=== PATIENT | female | born 2000 ===

== ENCOUNTER 2018-04-07 11:53 | Emergency (ER) | payer OTHER ==
--- OUTSIDE RECORDS SUMMARY | 2018-04-07 11:57 | XMS REPORT | Continuity of Care Document ---
:2000 External Reference #:[id number] Author Name Gus Stratton M.D. Address [address] [place] [address] Care Team Providers Name Role Phone Emil Kelley M.D. Primary Care Physician Unavailable Payers Type Date Identification Numbers Payment Provider Subscriber Policy Number: [id number] [employer] [place] Jyothi Diamond PayID: [id number] [address] [place] [phone] Advance Directives Description No Information Available Problems Date Description Provider Status Onset: 03/17/2018 Tear film insufficiency Gus Stratton M.D. Active Family History Date Family Member(s) Problem(s) Comments Father No Current Problems Mother No Current Problems Paternal Grandmother Detached Retina Maternal Grandfather Glaucoma Social History Type Date Description Comments Sex Unknown Marital Status Single Occupation Student Work Status Part-Time Employment ETOH Use Denies alcohol use Tobacco Use Start: Unknown Patient has never smoked Recreational Drug Use Denies Drug Use Smoking Status Reviewed: 03/17/18 Patient has never smoked Allergies, Adverse Reactions, Alerts Date Description Reaction Status Severity Comments 03/17/2018 Dust Active Medications Medication Date Status Form Strength Qnty SIG Indications Ordering Provider Artificial 03/16/20 Active Solution 1-0.3% as needed Gus Stratton M.D. Immunizations Description No Information Available Vital Signs Description No Information Available Results Description No Information Available Procedures Description No Information Available Encounters Description No Information Available Plan of Treatment 03/17/2018 - Gus Stratton M.D.H04.123 Dry eye syndrome of bilateral lacrimal glandsComments:Smoking can increase the risk of developing or worsening any eye related disease, as well as affect your overall health. If you are a smoker, we strongly recommend that you quit.If you are not a smoker, we strongly recommend that you do not start. Both of your eyes appear to be dry. Use artificial tears as directed. You can use the tears more often if you are reading a book or are on the computer,as we tend to blink less, making our eyes dry out more.[facility] offers a few items in our optical department to help alleviate dry eye symptoms. Use artificial tears 3-4 times a day inboth eyes.Follow up:1 Month Follow Up / review of symptoms At your next visit, we are not planning to dilate your eyes. However, if you have any changes in your vision or new symptoms, there are certain situations that require us to dilate your eyes. If Dr. Stratton requests any additional testing , that may require extra time. If you have any questions before your next appointment, please call our office at .
--- OUTSIDE RECORDS SUMMARY | 2018-04-07 11:57 | XMS REPORT | Continuity of Care Document ---
:2000 External Reference #:[id number] Author Name Emil Kelley M.D. Address [address] [place] [id number] Care Team Providers Name Role Phone Chen Zaldivar MD Primary Care Physician Unavailable Payers Type Date Identification Numbers Payment Provider Subscriber Effective: Policy Number: [id number] [facility] [place] Jyothi Diamond 2017 PayID: [id number] [address] [place] [address] Effective: 2014 Policy Number: [facility] Health Plans Sagrarioreymundo Diamond [id number] Expires: 2015 PayID: [id number] [place] [address] Effective: Policy Number: [facility] Jyothi Milner 2015 [id number] Dara Expires: 2017 PayID: [id number] [address] [address] [place] [address] Advance Directives Description No Information Available Problems Description No Active Problems Family History Description No Information Available Social History Type Date Description Comments Sex Unknown Lives With Mother And Father Pets None Hobbies Going out with friends Hobbies Pe class in school ETOH Use Denies alcohol use Tobacco Use Start: Unknown Patient has never smoked Recreational Drug Use Denies Drug Use Guns in Home No Grade 11th Allergies, Adverse Reactions, Alerts Description No Known Drug Allergies Medications Medication Date Status Form Strength Qnty SIG Indications Ordering Provider Implanon Active Implant 68mg Unknown 00 No Active 06/28/19 Hx Unknown Medications - 10/18/19 18 No Active 01/07/20 Hx Unknown Medications - 01/04/[address] 20mg Unknown - 06/28/19 17 Magnesium Hx Capsules 300mg Unknown - 06/25/19 17 Medications Administered in Office Medication Date Status Form Strength Qnty SIG Indications Ordering Provider Immunization 10/17/ Administered Injection Emil Tobin Administration 2018 Torrado, Single Or M.D. Combination Immunization 09/04/ Administered Injection Nursing Administration 2016 Single Or Combination TB Intradermal 09/04/ Administered Injection Nursing Test 2017 Immunization 06/27/ Administered Injection Lizz Administration 2016 Maria G, PATTERN TECHNICIAN thru 18 yrs w/counseling Immunization 01/03/ Administered Injection Lizz Administration 2015 Maria G, PATTERN TECHNICIAN Single Or Combination Immunization 12/15/ Administered Injection Lizz Adminstration 2+ 2014 Maria G, PATTERN TECHNICIAN Single Or Combination Immunization 12/15/ Administered Injection Lizz Administration 2014 Maria G, PATTERN TECHNICIAN Single Or Combination History of 12/30/ Administered Injection Lizz Varicella 1998 Maria G, PATTERN TECHNICIAN infection Immunizations CPT Code Status Date Vaccine Lot # [id number] Given 10/17/2017 Meningococcal B Vaccine [id number] 20164 Given 06/27/2016 Meningococcal B Vaccine [id number] 11178 Given 01/04/2016 Flu Quadrivalent [id number] 09761 Given 12/15/2014 Menactra [id number] 61616 Given 12/15/2014 Tdap [id number] 08584 Given 04/14/2013 Gardasil 54068 Given 12/15/2012 Gardasil 30187 Given 10/10/2012 Gardasil 17669 Given 09/26/2007 DT Vaccine Younger Than 7 Yrs 76773 Given 12/13/2005 MMR Vaccine, Live, For Subcutaneous Use 26291 Given 03/19/2003 DTP Vaccine 55378 Given 09/12/2002 Polio Injectable 95619 Given 12/05/2001 Hepatitis A Pediatric 86100 Given 09/13/2001 Polio Injectable 82879 Given 05/07/2001 Hepatitis A Pediatric 37757 Given 12/05/2000 Polio Injectable 22307 Given 11/23/2000 Polio Injectable 07613 Given 09/03/2000 Hepatitis A Pediatric 67081 Given 03/05/2000 Hepatitis A Pediatric 70697 Given 09/27/1999 Hib Vaccine 91894 Given 09/04/1999 DTP Vaccine 21847 Given 05/01/1999 MMR Vaccine, Live, For Subcutaneous Use 56806 Given 01/14/1999 Polio Injectable 66604 Given 1998 Polio Injectable 92533 Given 1998 Measles Vaccine, Live, For Subcutaneous Use 97841 Given 1998 Hib Vaccine 63179 Given 1998 DTP Vaccine 34637 Given 1998 Hepatitis B Vaccine Pediatric/Adolescent 41327 Given 1998 Hepatitis B Vaccine Pediatric/Adolescent 50225 Given 1998 DTP Vaccine 89151 Given 1998 Hib Vaccine 21678 Given 1998 DTP Vaccine 84900 Given 1998 Hib Vaccine 41284 Given 1998 Hepatitis B Vaccine Pediatric/Adolescent 93868 Given 1998 Hepatitis B Vaccine Pediatric/Adolescent Vital Signs Date Vital Result Comment 03/27/2018 12:17pm Body Temperature 99.7 F Heart Rate 61 /min Respiratory Rate 15 /min BP Systolic 105 mmHg BP Diastolic 59 mmHg Weight 111.25 lb Weight 50.463 kg Height 66.6 inches 5'6.60" BMI (Body Mass Index) 17.6 kg/m2 10/17/2017 9:15am Body Temperature 99.2 F Heart Rate 60 /min Respiratory Rate 14 /min BP Systolic 104 mmHg BP Diastolic 66 mmHg Weight 110.25 lb Weight 50.009 kg Height 66.6 inches 5'6.60" BMI (Body Mass Index) 17.5 kg/m2 Body Mass Index Percentile 3 % Height Percentile 82 % Weight Percentile 1606/27/2016 2:27pm Body Temperature 98.9 F Heart Rate 74 /min Respiratory Rate 18 /min BP Systolic 112 mmHg BP Diastolic 68 mmHg Blood Pressure Percentile 0 % Weight 115.38 lb Weight 52.334 kg Weight Percentile 30th 01/04/2016 3:50pm Body Temperature 98.9 F Heart Rate 60 /min Respiratory Rate 12 /min BP Systolic 100 mmHg BP Diastolic 60 mmHg Blood Pressure Percentile 11 % Weight 117.25 lb Weight 53.185 kg Height 65.75 inches 5'5.75" BMI (Body Mass Index) 19.1 kg/m2 Body Mass Index Percentile 21 % Height Percentile 73 % Weight Percentile 37th 01/06/2015 4:11pm Body Temperature 98.3 F Heart Rate 64 /min Respiratory Rate 14 /min BP Systolic 110 mmHg BP Diastolic 64 mmHg Blood Pressure Percentile 0 % Weight 113.12 lb Weight 51.313 kg Weight Percentile 33rd 12/15/2014 10:47am Body Temperature 98.8 F Heart Rate 100 /min Respiratory Rate 18 /min BP Systolic 106 mmHg BP Diastolic 68 mmHg Blood Pressure Percentile 24 % Weight 107.38 lb Weight 48.705 kg Height 66 inches 5'6" BMI (Body Mass Index) 17.3 kg/m2 Body Mass Index Percentile 7 % Height Percentile 77 % Weight Percentile 21st Results Test Date Facility Test Result H/L Range Note GC/Chlamydia 10/17/2017 [facility] Chlamydia Negative Negative Amplified Rna [address] [place] [address] Neisseria gonorrhoeae (GC) Rna Negative Negative Laboratory test finding 10/17/2017 [facility] .1-2 Test neg [address] [place], [place] [id number] [phone] .CBC W/Auto 10/17/2017 [facility] White Blood 5.1 Differential [address] [facility] [place] [address] CNT [phone] Absolute Lymphocytes 2.0 Absolute Monocytes 0.6 Absolute Neutrophils Auto CNT 2.5 Lymph% 38.9 [place]% Auto Count BLD 12.2 Neutrophil % 48.9 RBC Red Blood Count 4.51 Hemoglobin Blood 12.6 Hematocrit 41.2 MCV (Corpuscular Volume) 91.3 MCH (Corpuscular Hemoglobin) 27.9 MCHC (Corpuscular Hemog Conc) 30.6 RDW 13.7 Platelet Count Blood Auto CNT 245 MPV 8.3 Laboratory test 06/27/2016 [facility] .Urine II negative finding [address] [place] [address] [phone] .CBC W/Auto 01/04/2016 [facility] White Blood 6.3 Differential 10 [facility] [place] [place] [address] CNT [phone] Absolute Lymphocytes 1.7 Absolute Monocytes 0.6 Absolute Neutrophils Auto CNT 3.9 Lymph% 27.3 [place]% Auto Count BLD 10.3 Neutrophil % 62.4 RBC Red Blood Count 4.10 Hemoglobin Blood 9.8 Hematocrit 29.3 MCV (Corpuscular Volume) 71.4 MCH (Corpuscular Hemoglobin) 23.9 MCHC (Corpuscular Hemog Conc) 33.4 RDW 15.7 Platelet Count Blood Auto CNT 268 MPV 8.5 .CBC W/Auto 12/15/2014 [facility] White Blood 5.[address] [place] [address] CNT [phone] Absolute Lymphocytes 1.7 Absolute Monocytes 0.5 Absolute Neutrophils Auto CNT 3.1 Lymph% 31.9 [place]% Auto Count BLD 9.3 Neutrophil % 58.8 RBC Red Blood Count 4.28 Hemoglobin Blood 12.5 Hematocrit 36.5 MCV (Corpuscular Volume) 85.2 MCH (Corpuscular Hemoglobin) 29.2 MCHC (Corpuscular Hemog Conc) 34.2 RDW 13.0 Platelet Count Blood Auto CNT 256 MPV 7.7 Procedures Date Code Description Status 10/17/2017 11658 Vision Screening Completed 10/17/2017 48842 Admin Caregiver-Focused Health Risk Assessment Instrument Completed 10/17/2017 41532 Admin Patient Focused Health Risk Assessment Instrument Completed 10/17/2017 34147 Brief Emotional/Behav Assessment W/ Scoring Doc Per Completed Standard Inst 10/17/2017 75852 Hearing Screen, Pure Tone, Air Completed 10/17/2017 25230 Collection Of Capillary Blood Specimen Completed 01/04/2016 95699 Vision Screening Completed 01/04/2016 33203 Hearing Screen, Pure Tone, Air Completed 01/04/2016 70315 Collection Of Capillary Blood Specimen Completed 12/15/2014 83745 Vision Screening Completed 12/15/2014 84021 Hearing Screen, Pure Tone, Air Completed 12/15/2014 21694 Collection Of Capillary Blood Specimen Completed Encounters Type Date Location Provider Dx Diagnosis Office Visit 03/27/2018 [facility] Emil Kelley, S06.0x0A Concussion without 12:00p Jerry loss of consciousness, initial encounter H53.19 Other subjective visual disturbances Office Visit 10/17/2017 9:00a [facility] Emil Tobin Z00.01 Encounter for Jerry Kelley general adult medical exam w abnormal findings R63.6 Underweight Z13.89 Encounter for screening for other disorder Z71.89 Other specified counseling Office Visit 06/27/2016 2:45p [facility] Lizz Cummins Z30.019 Encounter for initial PATTERN TECHNICIAN prescription of contraceptives, unsp Office Visit 01/04/2016 3:30p [facility] Lizz Cummins, Z00.129 Encntr for routine PATTERN TECHNICIAN child health exam w/o abnormal findings M79.662 Pain in left lower leg R10.13 Epigastric pain Office Visit 01/06/2015 4:00p [facility] Bhavani Doan, S86.891A Inj oth M.D. musc/tend at lower leg level, right leg, init S86.892A Inj oth musc/tend at lower leg level, left leg, init Office Visit 12/15/2014 10:45a [facility] Lizz Cummins NP Z00.129 Encntr for routine child health exam w/o abnormal findings Plan of Treatment Future Appointment(s):10/23/2018 9:15 am - Emil Kelley M.D. at [facility]03/27/2018 - Emil Kelley M.D.S06.0x0A Concussion without loss of consciousness, initial encounterComments:significant changes in vision. no focal findings on exam. plan refer to neurology. will likely needct or mri.Referral:Meme Paula MD, SbcinqtqwH57.19 Other subjective visual disturbances
--- NOTE | 2018-04-07 12:11 | UC ---
Throat Pain/Nasal Ray HPI - HPI Summary HPI Summary: 18 yo female presents with sore throat for 2 days and felt hot last night, but did not take her temperature. She tells me that she has a long history of strep throat and this feels the same. She is tolerating po. She has been taking ibuprofen for her discomfort and fever with good relief. Denies sinus symptoms, cough, SOB, chest pain, abdominal pain, n/v, or rash. She also mentions that about a month ago she fell while skiing and hit her head. No LOC. Since that time has had intermittent headaches and trouble concentrating. Would like a referral to sports medicine or neurology. - History of Current Complaint Stated Complaint: SORE THROAT Time Seen by Provider: 04/07/18 12:02 Hx Obtained From: Patient Onset/Duration: Sudden Onset Severity: Mild Pain Intensity: 4 Pain Scale Used: 0-10 Numeric - Allergies/Home Medications Allergies/Adverse Reactions: Allergies Allergy/AdvReac Type Severity Reaction Status Date / Time dust Allergy Congestion Uncoded 04/07/18 12:16 Home Medications: Home Medications Ibuprofen 200 mg PO ONCE PRN 04/07/18 [History Confirmed 04/07/18] Implanon 1 unit SUBCUT ONCE 04/07/18 [History Confirmed 04/07/18] PMH/Surg Hx/FS Hx/Imm Hx - Additional Past Medical History Additional PMH: None - Surgical History Surgical History: None - Family History Known Family History: Positive: None - Social History Occupation: Student Lives: With Family Alcohol Use: None Substance Use Type: None Smoking Status (MU): Never Smoked Tobacco Review of Systems All Other Systems Reviewed And Are Negative: Yes Constitutional: Positive: Fever Skin: Positive: Negative Eyes: Positive: Negative ENT: Positive: Sore Throat Respiratory: Positive: Negative Cardiovascular: Positive: Negative Gastrointestinal: Positive: Negative Neurovascular: Positive: Negative Neurological: Positive: Negative Psychological: Positive: Negative Physical Exam - Summary Physical Exam Summary: GENERAL: NAD. WDWN. No pain distress. SKIN: No rashes, sores, lesions, or open wounds. HEENT: Head: AT/NC Eyes: Conjunctiva clear without inflammation or discharge. Ears: Hearing grossly normal. TMs intact, no bulging, erythema, or edema. Nose: Nasal mucosa pink and moist. NTTP maxillary and frontal sinus. Throat: Posterior oropharynx moderate erythema and 3+ tonsillar enlargement. Moderate exudates. Uvula midline. No hoarse voice or muffled voice. NECK: Supple. Mild tonsillar TTP LAD CHEST: CTAB. No r/r/w. No accessory muscle use. Breathing comfortably and in no distress. CV: RRR. Without m/r/g. Pulses intact. Cap refill <2seconds NEURO: A&Ox3. 3 word recall, remote, recent memory, ability to follow 2-step directions, and attention intact. CN: II: Peripheral freeman intact. Vision normal. III, IV, : EOMI. No nystagmus. PERRLA. V: Sensations intact and symmetric. Opens mouth and clenches teeth. VII: No facial asymmetry. Forehead wrinkles. Grins, shuts eyes, frowns, puffs cheeks. VIII: Hearing intact to finger rub. IX, X: Swallows and coughs. Uvula midline. XI: Shrugs shoulders. Turns head against resistance. XII: No tongue deviation Vznawt-di-bdvj are intact. Gait with normal base. Romberg: maintains balance, no pronator drift. Normal speech. No facial drooping. PSYCH: Age appropriate behavior. Triage Information Reviewed: Yes Vital Signs: Vital Signs: Temp Pulse Resp BP Pulse Ox 97.3 F 60 18 107/74 100 04/07/18 12:12 04/07/18 12:12 04/07/18 12:12 04/07/18 12:12 04/07/18 12:12 Vital Signs Reviewed: Yes Throat Pain/Nasal Course/Dx - Course Course Of Treatment: POC strep negative. Will send for full culture and treat for strep given her exam, hx, and past strep infections. - Differential Dx/Diagnosis Provider Diagnosis: Tonsillitis Discharge - Sign-Out/Discharge Documenting (check all that apply): Patient Departure All imaging exams completed and their final reports reviewed: No Studies - Discharge Plan Condition: Stable Disposition: HOME Prescriptions: Amoxicillin/Clavulanate TAB* [Augmentin TAB 875*] 875 mg PO BID #20 tab Patient Education Materials: Strep Throat (ED) Referrals: Emil Kelley MD [Primary Care Provider] - [facility] [Provider Group] - As Soon As Possible Additional Instructions: If you develop a fever, shortness of breath, chest pain, new or worsening symptoms - please call your PCP or go to the ED. Please call Sports Medicine at the number below to schedule a follow up appointment regarding your head injury and possible concussion - Billing Disposition and Condition Condition: STABLE Disposition: Home
[2018-04-07 12:16] VITALS: BP 107/74
--- NOTE | 2018-04-09 16:50 | UC ---
- Progress Note Progress Note: 04/09/2018 final throat culture negative Pt Rx Augmenting PO for Strep Please call back patient and inform of results. Advised to stop antibiotic. Thank you Kristie Keith PA-C Course/Dx - Diagnoses Provider Diagnoses: Tonsillitis Discharge - Sign-Out/Discharge Documenting (check all that apply): Patient Departure - D/c home All imaging exams completed and their final reports reviewed: No Studies - Discharge Plan Condition: Stable Disposition: HOME Prescriptions: Amoxicillin/Clavulanate TAB* [Augmentin TAB 875*] 875 mg PO BID #20 tab Patient Education Materials: Strep Throat (ED) Referrals: [facility] [Provider Group] - As Soon As Possible Emil Kelley MD [Primary Care Provider] - Additional Instructions: If you develop a fever, shortness of breath, chest pain, new or worsening symptoms - please call your PCP or go to the ED. Please call Sports Medicine at the number below to schedule a follow up appointment regarding your head injury and possible concussion - Billing Disposition and Condition Condition: STABLE Disposition: Home
== END 2018-04-07 12:32 | disposition home or self-care (01) ==
LOC: UCEAST 11:53
DX: J03.90 Acute tonsillitis, unspecified (principal); Z91.048 Other nonmedicinal substance allergy status
CPT/HCPCS: 87070; 87651; 99212; G0463